=== PATIENT | female | born 1990 | race Caucasian/White ===

== ENCOUNTER 2020-02-19 15:36 | Emergency (ER) | payer OTHER, SELFPAY ==
[2020-02-19 15:48] VITALS: BP 121/75; PULSE 82; RESP 18; TEMP 37; O2SAT 100
--- NOTE | 2020-02-19 16:23 | ED.URI ---
HPI - URI/Sore Throat General Chief Complaint: Upper Respiratory Infection Stated Complaint: sore throat Time Seen by Provider: 02/19/20 16:24 Source: patient and RN notes reviewed Mode of arrival: ambulatory Limitations: no limitations History of Present Illness HPI Narrative: 29 year old female who presents to [facility] care with complaints of 2 day history of sore throat and discomfort to her left lymph nodes with also left ear pain.Patient reports general malaise and feels achy denies any cough or shortness of breath and states no known fevers. 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 Patient has some nasal drainage with nares red on examination, throat is red with left tonsil swollen with no exudates. Patient denies any shortness of breath or any wheezing,lungs clear to auscultation with SAO2 100% on room air. MD elicited complaint: sore throat and other (ft glands swollen and left ear pain) Onset (ago): day(s) (2) Consistency: constant Severity: moderate Pain scale (0-10): 4 Description of mucous: clear Able to tolerate fluids by mouth: Yes Exacerbating factors: swallowing Relieving factors: nothing Context: other (health care worker) Associated symptoms: myalgias, sore throat and ear pain (left) Related Data Home Medications Medication Instructions Recorded Confirmed No Home Medications 02/19/20 02/19/20 Allergies Allergy/AdvReac Type Severity Reaction Status Date / Time No Known Allergies Allergy Mild Verified 02/19/20 16:10 Review of Systems Review of Systems: Narrative: CONSTITUTIONAL: Denies fever, chills, or sweats. EYES: Denies visual changes, redness, or discharge. ENT: Positive for rhinorrhea, congestion, sore throat, left otalgia. CARDIOVASCULAR: Denies chest pain, palpitations, or edema. RESPIRATORY: Denies cough or dyspnea. GASTROINTESTINAL: Denies abdominal pain, nausea, vomiting, or diarrhea. GENITOURINARY: Denies dysuria or hematuria. SKIN: Denies rash or itching. MUSCULOSKELETAL: Denies back pain, joint pain, states some general myalgia NEUROLOGIC: Denies headache, numbness, or weakness. PSYCHIATRIC: Denies anxiety or depression. All systems reviewed & are unremarkable except as noted in HPI and below PMFSH Past Medical History Medical History (Updated 02/21/20 @ 14:44 by Velia Lea NP) Mononucleosis 7th grade Surgical History Surgical History (Updated 02/21/20 @ 14:38 by Velia Lea NP) No history of previous surgery Social History Social History (Updated 02/21/20 @ 14:38 by Velia Lea NP) Smoking status: Never smoker Alcohol intake: unknown Substance use: never Living arrangements: with family Gender identity (if verbalized by the patient): Female Comments At time of signature, agree with nursing past medical, surgical, social history. There is no relevant family history pertinent to the presenting complaint Exam Narrative: Exam Narrative: GENERAL: Well-appearing, well-nourished, and in no acute distress. HEAD: Normocephalic, atraumatic. EYES: PERRLA and EOMI. ENT: Nares red with clear rhinorrhea no epistaxis. Mucous membranes moist.TM's normal with good light reflex, throat red with left tonsil red and swollen no exudates, some post nasal drainage noted NECK: Supple.mild left lymphadenopathy CHEST: Clear to auscultation. No respiratory distress.SAO2 100% on room air. no cough no tachypnea or accessory muscle use HEART: Regular rate and rhythm. No murmur heard. Normal peripheral pulses. ABDOMEN: Soft, nontender, nondistended, normal active bowel sounds. EXTREMITIES: Normal range of motion. No edema. general myalgia stated SKIN: Warm, dry, no rash. NEURO: No focal deficits. Alert and oriented x3. Course Vital Signs Vital signs: Vital Signs Temperature 37.0 C 02/19/20 15:48 Pulse Rate 82 02/19/20 15:48 Respiratory Rate 18 02/19/20 15:48 Blood Pressure 121/75 02/19/20 15:48 Pulse
== END 2020-02-19 16:43 | disposition home or self-care (01) ==
PROVIDERS: Emergency Provider Registered Nurse
DX: J06.9 Acute upper respiratory infection, unspecified (principal); J02.9 Acute pharyngitis, unspecified; Z20.828 Contact with and (suspected) exposure to other viral communicable diseases
CPT/HCPCS: 87081; 87804; 87880; 99203; G0463

== ENCOUNTER 2023-02-11 14:15 | Emergency (ER) | payer OTHER, SELFPAY ==
--- NOTE | 2023-02-11 14:19 | ED.URI ---
HPI - URI/Sore Throat General Stated Complaint: ear/headache/throat/fatigue Source: patient and RN notes reviewed Mode of arrival: ambulatory Limitations: no limitations History of Present Illness HPI Narrative: Patient is a 32-year-old female who presents to the [facility] with multiple complaints. Patient reports nasal congestion and drainage. She reports a frequent nonproductive cough. States that she has had a scratchy throat. She reports generalized body aches, chills, and fatigue. She also reports bilateral ear pain. Denies chest pain or shortness of breath. Denies recent fever. Patient states that her is sick with similar symptoms. She states that he was seen here earlier and diagnosed with an ear infection. Related Data Home Medications Medication Instructions Recorded Confirmed No Home Medications 02/19/20 02/19/20 Allergies Allergy/AdvReac Type Severity Reaction Status Date / Time No Known Allergies Allergy Mild Verified 02/19/20 16:10 Review of Systems Review of Systems: CONSTITUTIONAL: Denies fever or sweats. Reports chills. EYES: Denies visual changes, redness, or discharge. ENT: Reports otalgia and sore throat CARDIOVASCULAR: Denies chest pain, palpitations, or edema. RESPIRATORY: Reports cough but denies dyspnea. GASTROINTESTINAL: Denies abdominal pain, nausea, vomiting, or diarrhea. GENITOURINARY: Denies dysuria or hematuria. SKIN: Denies rash or itching. MUSCULOSKELETAL: Denies back pain, joint pain. Reports myalgia. NEUROLOGIC: Denies headache, numbness, or weakness. Pertinent positives per HPI. PMFSH Past Medical History Medical History Mononucleosis 7th grade Surgical History Surgical History No history of previous surgery Social History Social History Smoking status: Never smoker Alcohol intake: unknown Substance use: never Living arrangements: with family Gender identity (if verbalized by the patient): Female Comments At the time of my signature, I reviewed and agree with the nursing past medical, surgical, social, and family history. There is no relevant family history pertinent to the patient complaint. Exam Narrative: GENERAL: This is a well-nourished, well-developed patient, in no apparent distress. HEAD: normocephalic, atraumatic. EYES: PERRL. Sclera clear/white. Vision is grossly intact. EARS: External ears normal, auditory canals clear and without drainage, TMs normal without perforation. Hearing grossly intact. NOSE: External nose normal with no obvious nasal discharge, nares without redness, no rhinorrhea. THROAT: Mucous membranes moist, posterior pharynx clear. NECK: Neck supple, non-tender without lymphadenopathy, masses or thyromegaly. CARDIOVASCULAR: Regular rate and rhythm without murmurs, gallops, or rubs. RESPIRATORY: Clear to auscultation. Breath sounds equal bilaterally. No wheezes, rales, or rhonchi. GASTROINTESTINAL: Abdomen soft, non-tender, nondistended. Bowel sounds are active. No hepato-splenomegaly, or palpable masses. No guarding. SKIN: warm, intact with no suspicious lesions or rash, good texture and turgor. NEURO: awake, alert, and oriented to person, place and time. There were no obvious focal neurologic abnormalities. EXTREMITIES: No clubbing, cyanosis, or edema. No joint tenderness, effusion, or edema noted. BACK: Nontender without deformity or crepitance. No flank tenderness. Course Course Level of Care: Express Care Visit Vital Signs Vital signs: Vital Signs Temperature 98.6 F 02/11/23 14:22 Pulse Rate 101 H 02/11/23 14:22 Respiratory Rate 20 02/11/23 14:22 Blood Pressure 117/81 02/11/23 14:22 Pulse Oximetry 101 H 02/11/23 14:22 Oxygen Delivery Room Air 02/11/23 14:22 Temperature 98.6 F 02/11/23 14:22 Pulse Rate
[2023-02-11 14:22] VITALS: BP 117/81; PULSE 101; RESP 20; TEMP 37; O2SAT 100
== END 2023-02-11 15:01 | disposition home or self-care (01) ==
PROVIDERS: Emergency Provider Nurse Practitioner
DX: B34.9 Viral infection, unspecified (principal)
CPT/HCPCS: 87081; 87804; 87880; 99213; G0463